=== PATIENT | female | born 1995 | race African-American/Black ===

== ENCOUNTER 2018-11-25 08:37 | Emergency (ER) | payer OTHER ==
[~2018-11-25] VITALS: Ht 165.1 cm; Wt 60.0 kg
[2018-11-25] MEDS ORDERED: SODIUM CHLORIDE 0.9% 1,000 ML IV ONE ×2 (09:06→11:50)
[2018-11-25] MEDS ORDERED: MORPHINE SULFATE 4 MG/ML CPJ (NOT FOR IM USE) IV ONE ×2 (09:15→12:15)
[2018-11-25 09:31] LABS: BG BASE EXCESS -0.7 mmol/L (-2.0-2.0); BG CARBOXYHEMOGLOBIN 0.9 % (0.5-1.5); BG FRACTION INSPIRED OXYGEN 21; BG HCO3 ACT 23.5 mmol/L (22.0-26.0); BG METHEMOGLOBIN 0.3 % (0.0-1.5); BG OXYHEMOGLOBIN 95.8 % (94.0-97.0); BG PCO2 36.9 mmHg (35.0-45.0); BG PH 7.422 (7.350-7.450); BG PO2 91.9 mmHg (75.0-100.0); BG SAMPLE SITE LEFT BRACHIAL; BG TOTAL HEMOGLOBIN 10.4 g/dL (12.0-18.0); BG VENT MODE ROOM AIR
[2018-11-25 09:35] LABS: CLARITY URINE CLEAR (CLEAR); COLOR URINE YELLOW (YELLOW); KETONES URINE 1+ (NEGATIVE); LEUKOCYTE ESTERASE URINE NEGATIVE (NEGATIVE); NITRITE URINE NEGATIVE (NEGATIVE); OCCULT BLOOD URINE NEGATIVE (NEGATIVE); PH URINE 7.5 (4.5-8.0); PROTEIN URINE NEGATIVE (NEGATIVE); SPECIFIC GRAVITY URINE 1.017 (1.005-1.030); UROBILINOGEN URINE 0.2 E.U./dL (0.2-1.0)
[2018-11-25] MEDS ORDERED: DIPHENHYDRAMINE 50MG/ML VIAL IV ONE (10:00)
[2018-11-25 10:08] LABS: HEMATOCRIT. 32.6 % (36.0-48.0); HEMOGLOBIN. 10.4 g/dL (12.0-16.0); MEAN CORPUSCULAR VOLUME 78.8 fL (81.0-99.0); MEAN PLATELET VOLUME 8.9 fl (7.4-10.4); PLATELET 418 x1000/uL (130-400); RED BLOOD CELL COUNT 4.14 mill/uL (4.2-5.4); RED CELL DISTRIBUTION WIDTH 19.1 % (11.6-14.6)
[2018-11-25 10:16] LABS: CHLORIDE 95 mEq/L (98-107)
[2018-11-25 10:24] LABS: BETA HYDROXYBUTYRATE 2.2 mMol/L (0.0-0.3)
[2018-11-25 10:25] LABS: PLATELET ESTIMATE SLIGHTLY INCREASED
[2018-11-25] MEDS ORDERED: INSULIN REGULAR (HUMULIN R) 300UNITS/3ML IV ONE (10:30)
[2018-11-25] MEDS ORDERED: HYDRALAZINE 20MG/ML VIAL IV ONE ×2 (10:45→12:15)
[2018-11-25 13:53] VITALS: BP 137/81
== END 2018-11-25 13:55 | disposition left against medical advice (07) ==
LOC: ER 08:37
DX: I16.0 Hypertensive urgency (principal); R11.2 Nausea with vomiting, unspecified; R35.8 Other polyuria; R10.13 Epigastric pain; E11.9 Type 2 diabetes mellitus without complications
CPT/HCPCS: 36415; 36600; 71045; 74176; 80053; 81003; 82010; 82375; 82805; 82962; 83690; 84484; 85025; 93005; 96361; 96374; 96375; 96376; 99284; J0360; J1200; J1815; J2270; J7030

== ENCOUNTER 2018-11-27 07:03 | Emergency (ER) | payer OTHER ==
[~2018-11-27] VITALS: Ht 165.1 cm; Wt 52.0 kg
[2018-11-27] MEDS ORDERED: SODIUM CHLORIDE 0.9% 1,000 ML IV ONE ×2 (07:55→10:15)
[2018-11-27] MEDS ORDERED: ONDANSETRON HCL 4MG/2ML INJ IV STA (07:55)
[2018-11-27] MEDS ORDERED: METOCLOPRAMIDE HCL 10MG/2ML VIAL IV ONE (08:45)
[2018-11-27] MEDS ORDERED: HYDRALAZINE 20MG/ML VIAL IV ONE ×2 (08:45→10:15)
[2018-11-27] MEDS ORDERED: MORPHINE SULFATE 4 MG/ML CPJ (NOT FOR IM USE) IV ONE (08:45)
[2018-11-27] MEDS ORDERED: DIPHENHYDRAMINE 50MG/ML VIAL IV ONE (08:45)
[2018-11-27 08:52] LABS: CLARITY URINE CLEAR (CLEAR); COLOR URINE YELLOW (YELLOW); KETONES URINE 1+ (NEGATIVE); LEUKOCYTE ESTERASE URINE NEGATIVE (NEGATIVE); NITRITE URINE NEGATIVE (NEGATIVE); OCCULT BLOOD URINE NEGATIVE (NEGATIVE); PROTEIN URINE TRACE (NEGATIVE); SPECIFIC GRAVITY URINE 1.016 (1.005-1.030); UROBILINOGEN URINE 0.2 E.U./dL (0.2-1.0)
[2018-11-27 09:04] LABS: HEMATOCRIT. 30.2 % (36.0-48.0); HEMOGLOBIN. 9.7 g/dL (12.0-16.0); MEAN CORPUSCULAR HEMOGLOBIN 25.1 pg (28.0-32.0); MEAN CORPUSCULAR VOLUME 78.6 fL (81.0-99.0); MEAN PLATELET VOLUME 8.4 fl (7.4-10.4); PLATELET 333 x1000/uL (130-400); RED BLOOD CELL COUNT 3.84 mill/uL (4.2-5.4); RED CELL DISTRIBUTION WIDTH 18.8 % (11.6-14.6)
[2018-11-27 09:10] LABS: CHLORIDE 100 mEq/L (98-107); PROTHROMBIN TIME 10.7 sec (9.6-11.0)
[2018-11-27 09:22] LABS: BETA HYDROXYBUTYRATE 3.3 mMol/L (0.0-0.3)
[2018-11-27] MEDS ORDERED: HYDRALAZINE 20MG/ML VIAL IV SCH (10:15)
[2018-11-27 10:25] LABS: PLATELET ESTIMATE NORMAL
[2018-11-27] MEDS ORDERED: LORAZEPAM 2MG/ML CPJ IV ONE (11:30)
[2018-11-27] MEDS ORDERED: LABETALOL 5MG/ML SYR 20 MG/4 ML SYRINGE IV ONE (11:45)
[2018-11-27] MEDS ORDERED: HYDRALAZINE 20MG/ML VIAL IV PRN (12:00)
[2018-11-27] MEDS ORDERED: DOCUSATE SODIUM 100MG CAPSULE PO PRN (12:00)
[2018-11-27] MEDS ORDERED: ACETAMINOPHEN 325MG TABLET PO PRN (12:00)
[2018-11-27] MEDS ORDERED: MAGNESIUM/ALUMINUM HYDROXIDE/SIMETHICONE 30ML UDC PO PRN (12:00)
[2018-11-27] MEDS ORDERED: ONDANSETRON HCL 4MG/2ML INJ IV PRN (12:00)
[2018-11-27] MEDS ORDERED: DIPHENHYDRAMINE 50MG/ML VIAL IV PRN (12:00)
[2018-11-27] MEDS ORDERED: IPRATROPIUM/ALBUTEROL 0.5-3(2.5)MG/3ML NEB HHN PRN (12:00)
[2018-11-27] MEDS ORDERED: GUAIFENESIN 200MG/10ML SUGAR FREE UDC PO PRN (12:00)
[2018-11-27] MEDS ORDERED: CLONIDINE 0.1MG TABLET PO PRN (12:00)
[2018-11-27 12:18] LABS: PHOSPHORUS 2.5 mg/dL (2.5-4.9)
[2018-11-27 12:38] LABS: HCG SCREEN NEGATIVE
[2018-11-27 12:57] LABS: METHADONE URINE SCREEN NEGATIVE (NEGATIVE); PHENCYCLIDINE URINE SCREEN NEGATIVE (NEGATIVE)
[2018-11-27 12:58] LABS: *AMPHETAMINES SCREEN URINE NEGATIVE (NEGATIVE); *BARBITURATES SCREEN URINE NEGATIVE (NEGATIVE); *BENZODIAZEPINES SCREEN URINE NEGATIVE (NEGATIVE)
[2018-11-27 13:00] LABS: *COCAINE SCREEN URINE PRESUMTIVE POSITIVE (NEGATIVE); CANNABINOID URINE SCREEN PRESUMTIVE POSITIVE (NEGATIVE); OPIATES URINE SCREEN PRESUMTIVE POSITIVE (NEGATIVE)
[2018-11-27] MEDS ORDERED: DEXTROSE 50% WATER 50ML SYRINGE IV PRN (13:15)
[2018-11-27] MEDS ORDERED: INSULIN LISPRO 100 UNITS/ML SUBCUT SCH (13:20)
[2018-11-27 14:15] VITALS: BP 113/61
[2018-11-27] MEDS ORDERED: ASPIRIN 81MG EC TABLET PO ONE (14:30)
[2018-11-27] MEDS ORDERED: BLOOD SUGAR DIAGNOSTIC STRIP TEST SCH (17:00)
[2018-11-28] MEDS ORDERED: AMLODIPINE 5MG TABLET PO SCH (09:00)
== END 2018-11-27 14:35 | disposition left against medical advice (07) ==
LOC: ER 07:03 → EDBEDREQ 08:37 → EDBEDREQSVC 11:52 → EDBEDREQ 11:52 → ENRESERV 12:47 → CANRESERV 12:47 → CANBEDREQ 14:33 → ER 14:35
DX: I16.0 Hypertensive urgency (principal); I10 Essential (primary) hypertension; E11.65 Type 2 diabetes mellitus with hyperglycemia; Z79.4 Long term (current) use of insulin
CPT/HCPCS: 36415; 71045; 80053; 80305; 80320; 81003; 82010; 83605; 83690; 83735; 84100; 84484; 84703; 85025; 85610; 87040; 93005; 96361; 96374; 96375; 96376; 99284; J0360; J1200; J2060; J2270; J2405; J2765; J3490; J7030; G0480

== ENCOUNTER 2018-12-21 08:22 | Inpatient (IN) | payer OTHER ==
[~2018-12-21] VITALS: Ht 157.5 cm; Wt 48.3 kg
[2018-12-21] MEDS ORDERED: ONDANSETRON HCL 4MG/2ML INJ IV STA (09:22)
[2018-12-21] MEDS ORDERED: SODIUM CHLORIDE 0.9% 1,000 ML IV ONE (09:22)
[2018-12-21] MEDS ORDERED: KETOROLAC 30MG/ML VIAL IV STA (09:22)
[2018-12-21] MEDS ORDERED: AMLODIPINE 10MG TABLET PO SCH ×2 (09:30→17:30)
[2018-12-21 09:32] LABS: BASOPHILS % 0.3 % (0.0-2.0); EOSINOPHILS % 0.5 % (0.0-5.0); HEMATOCRIT. 39.5 % (36.0-48.0); HEMOGLOBIN. 12.9 g/dL (12.0-16.0); LYMPHOCYTES % 13.4 % (20.0-50.0); MEAN CORPUSCULAR HEMOGLOBIN 25.6 pg (28.0-32.0); MEAN CORPUSCULAR VOLUME 78.6 fL (81.0-99.0); MEAN PLATELET VOLUME 9.1 fl (7.4-10.4); MONOCYTES % 5.4 % (2.0-8.0); NEUTROPHILS % 80.4 % (40.0-76.0); PLATELET 327 x1000/uL (130-400); RED BLOOD CELL COUNT 5.03 mill/uL (4.2-5.4); RED CELL DISTRIBUTION WIDTH 18.9 % (11.6-14.6)
[2018-12-21 09:39] LABS: CHLORIDE 85 mEq/L (98-107)
[2018-12-21] MEDS ORDERED: DIPHENHYDRAMINE 50MG/ML VIAL IV ONE (10:15)
[2018-12-21] MEDS ORDERED: INSULIN REGULAR (HUMULIN R) 300UNITS/3ML SUBCUT ONE (11:45)
[2018-12-21 12:02] LABS: CLARITY URINE CLEAR (CLEAR); COLOR URINE YELLOW (YELLOW); KETONES URINE 2+ (NEGATIVE); LEUKOCYTE ESTERASE URINE NEGATIVE (NEGATIVE); NITRITE URINE NEGATIVE (NEGATIVE); OCCULT BLOOD URINE TRACE (NEGATIVE); PH URINE 5.5 (4.5-8.0); PROTEIN URINE 2+ (NEGATIVE); SPECIFIC GRAVITY URINE 1.033 (1.005-1.030); UROBILINOGEN URINE 0.2 E.U./dL (0.2-1.0)
[2018-12-21] MEDS ORDERED: HYDRALAZINE 20MG/ML VIAL IV ONE (12:30)
[2018-12-21 12:34] LABS: *AMPHETAMINES SCREEN URINE NEGATIVE (NEGATIVE); *BARBITURATES SCREEN URINE NEGATIVE (NEGATIVE); *BENZODIAZEPINES SCREEN URINE NEGATIVE (NEGATIVE); *COCAINE SCREEN URINE NEGATIVE (NEGATIVE)
[2018-12-21] MEDS ORDERED: MORPHINE SULFATE 4 MG/ML CPJ (NOT FOR IM USE) IV STA (12:34)
[2018-12-21 12:35] LABS: METHADONE URINE SCREEN NEGATIVE (NEGATIVE); OPIATES URINE SCREEN NEGATIVE (NEGATIVE); PHENCYCLIDINE URINE SCREEN NEGATIVE (NEGATIVE)
[2018-12-21 12:36] LABS: CANNABINOID URINE SCREEN PRESUMTIVE POSITIVE (NEGATIVE)
[2018-12-21] MEDS ORDERED: CLONIDINE 0.1MG TABLET PO ONE (15:30)
[2018-12-21] MEDS ORDERED: ONDANSETRON HCL 4MG/2ML INJ IV ONE (16:15)
[2018-12-21] MEDS ORDERED: MORPHINE SULFATE 4 MG/ML CPJ (NOT FOR IM USE) IV ONE (16:15)
[2018-12-21 17:20] VITALS: BP 147/88
[2018-12-21] MEDS ORDERED: CLONIDINE 0.1MG TABLET PO PRN (17:30)
[2018-12-21] MEDS ORDERED: DEXTROSE 50% WATER 50ML SYRINGE IV PRN (17:30)
[2018-12-21] MEDS ORDERED: DOCUSATE SODIUM 100MG CAPSULE PO PRN (17:30)
[2018-12-21] MEDS ORDERED: IPRATROPIUM/ALBUTEROL 0.5-3(2.5)MG/3ML NEB HHN PRN (17:30)
[2018-12-21] MEDS ORDERED: MAGNESIUM/ALUMINUM HYDROXIDE/SIMETHICONE 30ML UDC PO PRN (17:30)
[2018-12-21] MEDS ORDERED: ONDANSETRON HCL 4MG/2ML INJ IV PRN (17:30)
[2018-12-21] MEDS ORDERED: LORAZEPAM 0.5MG TABLET PO PRN (17:30)
[2018-12-21] MEDS ORDERED: ZOLPIDEM TARTRATE 5MG TABLET PO PRN (17:30)
[2018-12-21] MEDS ORDERED: KETOROLAC 15MG/ML VIAL IV PRN (17:30)
[2018-12-21] MEDS ORDERED: GUAIFENESIN 200MG/10ML SUGAR FREE UDC PO PRN (17:30)
[2018-12-21] MEDS ORDERED: ACETAMINOPHEN 325MG TABLET PO PRN (17:30)
[2018-12-21] MEDS ORDERED: NITROGLYCERIN 0.4MG TABLET SL SL PRN (17:30)
[2018-12-21] MEDS ORDERED: POTASSIUM CHLORIDE 20MEQ TABLET SR PO NR (17:45)
[2018-12-21] MEDS: INSULIN LISPRO 100 UNITS/ML SUBCUT SCH ×2 (17:45→22:17)
[2018-12-21 18:24] VITALS: BP 135/77
[2018-12-21] MEDS: METOCLOPRAMIDE 10MG/10 ML UDC PO SCH (18:30)
[2018-12-21] MEDS ORDERED: DIPHENHYDRAMINE 25MG CAPSULE PO PRN (19:30)
[2018-12-21 20:00] VITALS: BP 135/77
[2018-12-21] MEDS ORDERED: LEVOFLOXACIN 500MG PREMIX 100 ML IV SCH (20:00)
[2018-12-21] MEDS: METOPROLOL TARTRATE 25MG TABLET PO SCH (20:37)
[2018-12-21] MEDS: SODIUM CHLORIDE 0.9% 1,000 ML IV SCH (20:37)
[2018-12-21] MEDS: LISINOPRIL 20MG TABLET PO SCH (20:38)
[2018-12-21] MEDS: FAMOTIDINE 20MG TABLET PO SCH (20:38)
[2018-12-21] MEDS: SUCRALFATE 1 G/10 ML UDC PO SCH (20:38)
[2018-12-21] MEDS: BLOOD SUGAR DIAGNOSTIC STRIP TEST SCH (21:00)
[2018-12-21 22:00] VITALS: BP 101/38
[2018-12-21] MEDS ORDERED: INSULIN GLARGINE UD 100 UNITS/ML SYR SUBCUT SCH (22:00)
[2018-12-22] VITALS (9 sets, daily range): BP systolic 91–133; BP diastolic 44–84
[2018-12-22] MEDS: SODIUM CHLORIDE 0.9% 1,000 ML IV SCH (03:45)
[2018-12-22] MEDS: METOCLOPRAMIDE 10MG/10 ML UDC PO SCH ×2 (06:32→14:41)
[2018-12-22] MEDS: BLOOD SUGAR DIAGNOSTIC STRIP TEST SCH ×2 (06:32→12:19)
[2018-12-22] MEDS: SUCRALFATE 1 G/10 ML UDC PO SCH ×2 (06:32→14:41)
[2018-12-22] MEDS: INSULIN LISPRO 100 UNITS/ML SUBCUT SCH ×2 (07:20→12:20)
[2018-12-22 07:38] LABS: CHLORIDE 94 mEq/L (98-107)
[2018-12-22 07:49] LABS: CREATINE KINASE 94 IU/L (26-192)
[2018-12-22 07:52] LABS: CREATINE KINASE MB FRACTION < 1.0 ng/mL (0.5-3.6)
[2018-12-22] MEDS: METOPROLOL TARTRATE 25MG TABLET PO SCH (09:00)
[2018-12-22] MEDS: LISINOPRIL 20MG TABLET PO SCH (09:00)
[2018-12-22] MEDS ORDERED: AMLODIPINE 10MG TABLET PO SCH (09:00)
[2018-12-22] MEDS: FAMOTIDINE 20MG TABLET PO SCH (09:00)
[2018-12-22] MEDS ORDERED: POTASSIUM CHLORIDE 20MEQ TABLET SR PO SCH (13:45)
[2018-12-22] MEDS ORDERED: LEVOFLOXACIN 250MG PREMIX 50 ML IV SCH (20:00)
[2018-12-22] MEDS ORDERED: ATORVASTATIN CALCIUM 40MG TABLET PO SCH (21:00)
== END 2018-12-22 15:45 | disposition home or self-care (01) | DRG 74 ==
LOC: ER 08:22 → 3WST 12:41 → CANBEDREQ 14:46 → EDBEDREQSVC 15:26 → EDBEDREQTM 15:28 → EDBEDREQ 15:30 → ENRESERV 16:16 → 3WST 20:05
PROVIDERS: ADMIT Internal Medicine; ATTEND Internal Medicine
DX: E11.43 Type 2 diabetes mellitus with diabetic autonomic (poly)neuropathy (principal); E87.1 Hypo-osmolality and hyponatremia; N39.0 Urinary tract infection, site not specified; K29.70 Gastritis, unspecified, without bleeding; K31.84 Gastroparesis; E11.65 Type 2 diabetes mellitus with hyperglycemia; E87.6 Hypokalemia; E78.00 Pure hypercholesterolemia, unspecified; E83.52 Hypercalcemia; F12.10 Cannabis abuse, uncomplicated; I10 Essential (primary) hypertension
CPT/HCPCS: 36415; 76705; 80061; 80305; 81003; 82550; 82553; 82962; 83036; 84484; 99285; J0360; J1200; J1815; J1885; J1956; J2270; J2405; J7030; J8597

== ENCOUNTER 2019-01-09 07:06 | Emergency (ER) | payer OTHER ==
[~2019-01-09] VITALS: Ht 157.5 cm; Wt 52.0 kg
[2019-01-09] MEDS ORDERED: FAMOTIDINE 20MG/2ML VIAL IV STA (07:16)
[2019-01-09] MEDS ORDERED: MORPHINE SULFATE 4 MG/ML CPJ (NOT FOR IM USE) IV STA (07:16)
[2019-01-09] MEDS ORDERED: ONDANSETRON HCL 4MG/2ML INJ IV STA (07:16)
[2019-01-09] MEDS ORDERED: SODIUM CHLORIDE 0.9% 1,000 ML IV ONE (07:16)
[2019-01-09 07:51] LABS: HEMATOCRIT. 32.6 % (36.0-48.0); HEMOGLOBIN. 10.5 g/dL (12.0-16.0); MEAN CORPUSCULAR HEMOGLOBIN 25.9 pg (28.0-32.0); MEAN CORPUSCULAR VOLUME 80.3 fL (81.0-99.0); MEAN PLATELET VOLUME 8.7 fl (7.4-10.4); PLATELET 355 x1000/uL (130-400); RED BLOOD CELL COUNT 4.06 mill/uL (4.2-5.4); RED CELL DISTRIBUTION WIDTH 20.4 % (11.6-14.6)
[2019-01-09 07:53] LABS: CLARITY URINE CLEAR (CLEAR); COLOR URINE YELLOW (YELLOW); KETONES URINE 3+ (NEGATIVE); LEUKOCYTE ESTERASE URINE NEGATIVE (NEGATIVE); NITRITE URINE NEGATIVE (NEGATIVE); OCCULT BLOOD URINE TRACE (NEGATIVE); PROTEIN URINE 2+ (NEGATIVE); SPECIFIC GRAVITY URINE 1.027 (1.005-1.030); UROBILINOGEN URINE 0.2 E.U./dL (0.2-1.0)
[2019-01-09 07:58] LABS: CHLORIDE 95 mEq/L (98-107); INR 1.1; PROTHROMBIN TIME 10.9 sec (9.6-11.0)
[2019-01-09 08:01] LABS: ETHANOL BLOOD < 10 mg/dL
[2019-01-09 08:07] LABS: HCG SCREEN NEGATIVE
[2019-01-09 08:20] LABS: PLATELET ESTIMATE NORMAL
[2019-01-09 08:26] LABS: *AMPHETAMINES SCREEN URINE NEGATIVE (NEGATIVE); *BARBITURATES SCREEN URINE NEGATIVE (NEGATIVE); *COCAINE SCREEN URINE NEGATIVE (NEGATIVE)
[2019-01-09 08:27] LABS: *BENZODIAZEPINES SCREEN URINE NEGATIVE (NEGATIVE); METHADONE URINE SCREEN NEGATIVE (NEGATIVE); OPIATES URINE SCREEN NEGATIVE (NEGATIVE); PHENCYCLIDINE URINE SCREEN NEGATIVE (NEGATIVE)
[2019-01-09 08:28] LABS: CANNABINOID URINE SCREEN PRESUMTIVE POSITIVE (NEGATIVE)
[2019-01-09] MEDS ORDERED: SODIUM CHLORIDE 0.9% 1000ML BAG (SEPSIS BOLUS) IV ONE (08:45)
[2019-01-09] MEDS ORDERED: INSULIN REGULAR (HUMULIN R) 300UNITS/3ML IV ONE (08:45)
[2019-01-09] MEDS ORDERED: LABETALOL 5MG/ML SYR 20 MG/4 ML SYRINGE IV ONE (09:30)
[2019-01-09] MEDS ORDERED: LORAZEPAM 2MG/ML CPJ IV ONE (10:00)
[2019-01-09] MEDS ORDERED: CEFTRIAXONE 1 G PREMIX 50 ML IV ONE (10:00)
[2019-01-09] MEDS ORDERED: KETOROLAC 30MG/ML VIAL IV ONE (11:15)
[2019-01-09 11:23] VITALS: BP 137/84
== END 2019-01-09 11:51 | disposition short-term general hospital (02) ==
LOC: ER 07:50 → CANBEDREQ 08:43 → ER 11:51
DX: R10.13 Epigastric pain (principal); R11.2 Nausea with vomiting, unspecified; E11.10 Type 2 diabetes mellitus with ketoacidosis without coma; R65.10 Systemic inflammatory response syndrome (SIRS) of non-infectious origin without acute organ dysfunction; I10 Essential (primary) hypertension
CPT/HCPCS: 36415; 71045; 80053; 80305; 80320; 81003; 81025; 82962; 83605; 83690; 84145; 84484; 84703; 85025; 85610; 87040; 87086; 93005; 96361; 96365; 96375; 99285; C1893; J1815; J1885; J2060; J2270; J2405; J3490; J7030; Z7610; G0480

== ENCOUNTER 2020-07-26 13:15 | Emergency (ER) | payer OTHER ==
[~2020-07-26] VITALS: Ht 172.7 cm; Wt 50.0 kg
[2020-07-26] MEDS ORDERED: SODIUM CHLORIDE 0.9% 1,000 ML IV ONE (13:45)
[2020-07-26 13:47] VITALS: BP 176/111
[2020-07-26 14:39] LABS: CLARITY URINE CLEAR (CLEAR); COLOR URINE YELLOW (YELLOW); KETONES URINE 1+ (NEGATIVE); LEUKOCYTE ESTERASE URINE NEGATIVE (NEGATIVE); NITRITE URINE NEGATIVE (NEGATIVE); OCCULT BLOOD URINE 1+ (NEGATIVE); PH URINE 7.5 (4.5-8.0); PROTEIN URINE 2+ (NEGATIVE); SPECIFIC GRAVITY URINE 1.026 (1.005-1.030); UROBILINOGEN URINE 0.2 E.U./dL (0.2-1.0)
== END 2020-07-26 15:12 | disposition home or self-care (01) ==
LOC: ER 13:15
DX: E11.43 Type 2 diabetes mellitus with diabetic autonomic (poly)neuropathy (principal); K31.84 Gastroparesis; I49.9 Cardiac arrhythmia, unspecified
CPT/HCPCS: 81003; 81025; 93005; 99283; J7030

== ENCOUNTER 2020-07-26 17:03 | Emergency (ER) | payer OTHER ==
[~2020-07-26] VITALS: Ht 167.6 cm; Wt 64.0 kg
== END 2020-07-26 17:15 | disposition left against medical advice (07) ==
LOC: ER 17:03
DX: Z53.21 Procedure and treatment not carried out due to patient leaving prior to being seen by health care provider (principal)